=== PATIENT | male | born 1955 | race Caucasian/White ===

== ENCOUNTER 2021-03-24 17:37 | Emergency (ER) | payer OTHER ==
[~2021-03-24] VITALS: Ht 185.4 cm; Wt 99.8 kg
[2021-03-24 17:50] VITALS: BP 173/113
--- NOTE | 2021-03-24 18:43 | NUR ---
BIBA TO ER BED 13
--- NOTE | 2021-03-24 18:53 | NUR ---
PT RETURNED FROM CT VIA GURNEY TO BED 13. PER SMELTING ENGINEER PT HAS REFUSED CT SCAN AT THIS TIME DUE TO PAIN
--- NOTE | 2021-03-24 19:16 | NUR ---
ASSUMED CARE OF OLIVIATENT AT THIS TIME. PT LAYING SUPINE IN BED WITH C-COLLAR IN PLACE. 10/19 PAIN NOTED. WILL CONTINUE TO MONITOR.
[2021-03-24] MEDS ORDERED: MORPHINE SULFATE 10 MG/ML VIAL IVP ONE (19:25)
--- NOTE | 2021-03-24 19:48 | NUR ---
PT TAKEN TO RAD VIA [facility]BE[facility].
--- NOTE | 2021-03-24 21:13 | NUR ---
PT CLEARED FOR DISCHARGE BY DR. COUGHLIN. UNABLE TO ARRANGE TRANSPORTATION AT THIS TIME.
[2021-03-24] MEDS ORDERED: ACET-8386 PO (21:14)
--- NOTE | 2021-03-24 21:30 | NUR ---
C/O 11/[address] COUGHLIN NOTIFIED.
--- NOTE | 2021-03-24 22:05 | NUR ---
PT STILL HAS C/O NECK PAIN. BP ELEVATED AT 187/107. DR. COUGHLIN NOTIFIED.
[2021-03-24] MEDS ORDERED: HYDROcodone/APAP 10/325 MG 1 TAB TAB PO PRN (22:25)
[2021-03-24] MEDS ORDERED: ONDANSETRON 4 MG/2 ML VIAL IVP ONE (22:30)
[2021-03-24] MEDS ORDERED: MORPHINE SULFATE 2 MG/ML SYR IVP ONE (22:30)
--- NOTE | 2021-03-24 23:40 | NUR ---
PT REPORTS DECREASED PAIN, 6/10.
--- NOTE | 2021-03-24 23:56 | NUR ---
Patient discharged with v/s stable. Written and verbal after care instructions given and explained. Patient alert, oriented and verbalized understanding of instructions. Wheel Chair Assisted with by EMT. All questions addressed prior to discharge. ID band removed. Patient advised to follow up with PMD. Rx of NORCO given. Patient educated on indication of medication including possible reaction and side effects. Opportunity to ask questions provided and answered.
[2021-03-24 23:57] VITALS: BP 162/82
== END 2021-03-24 23:56 | disposition home or self-care (01) ==
LOC: MED 17:37
DX: S12.9XXA Fracture of neck, unspecified, initial encounter (principal); I10 Essential (primary) hypertension; V98.8XXA Other specified transport accidents, initial encounter; Y93.89 Activity, other specified; Y92.89 Other specified places as the place of occurrence of the external cause; Y99.8 Other external cause status
CPT/HCPCS: 71045; 72125; 96374; 96375; 96376; 99284; J2270; J2405